=== PATIENT | male | born 1970 ===

== ENCOUNTER 2017-01-09 13:30 | Emergency (ER) | payer SELFPAY ==
[2017-01-09 14:21] VITALS: BP 106/59
--- NOTE | 2017-01-09 14:55 | UC ---
Lower Extremity/Ankle HPI - HPI Summary HPI Summary: 46 y/o Polish speaking male presents to the urgent care c/o left ankle pain after twisting it while lifting some food boxes at work on 01/04/2017. He has been walking with limping since then. Pain 2/10, but increases with ambulation and associated with swelling. Pt has not taking anything to alleviate symptoms. Pt denies numbness and tingling sensation over the Left foot and toes, fever, N /V/D, SOB, chest pain, abdominal pain, urinary symptoms. Pt works in a farm - History of Current Complaint Chief Complaint: UCLowerExtremity Stated Complaint: LEFT ANKLE PAIN Time Seen by Provider: 01/09/17 14:42 Hx Obtained From: Patient Onset/Duration: Sudden Onset, Lasting Days Severity Initially: Mild Severity Currently: Moderate - swelling Pain Intensity: 2 Pain Scale Used: 0-10 Numeric Aggravating Factor(s): Ambulation Alleviating Factor(s): Rest Able to Bear Weight: Yes Related History: Occupational Injury - Pt works in a farm - Risk Factors Gout Risk Factors: Negative DVT Risk Factors: Negative Septic Arthritis Risk Factor: Negative - Allergies/Home Medications Allergies/Adverse Reactions: Allergies Allergy/AdvReac Type Severity Reaction Status Date / Time No Known Allergies Allergy Verified 01/09/17 14:09 PMH/Surg Hx/FS Hx/Imm Hx Previously Healthy: Yes - Pt denies PMHX - Surgical History Surgical History: Yes Surgery Procedure, Year, and Place: abd hernia repair 2012 - Family History Known Family History: Positive: None - Pt denies FMHX - Social History Occupation: Employed Full-time Lives: With Family Alcohol Use: Rare Substance Use Type: None Smoking Status (MU): Former Smoker When Did the Patient Quit Smoking/Using Tobacco: 18 YRS AGO Review of Systems Constitutional: Negative Skin: Negative Eyes: Negative ENT: Negative Respiratory: Negative Cardiovascular: Negative Gastrointestinal: Negative Genitourinary: Negative Motor: Negative Neurovascular: Negative Musculoskeletal: Other: - Left ankle pain and swelling s/p twisting ankle while stacking boxes at work Neurological: Negative Psychological: Negative Is Patient Immunocompromised?: No All Other Systems Reviewed And Are Negative: Yes Physical Exam Triage Information Reviewed: Yes Vital Signs: Initial Vital Signs Temp 97.8 F 01/09/17 13:49 Pulse 56 01/09/17 13:49 Resp 20 01/09/17 13:49 BP 106/59 01/09/17 13:49 Pulse Ox 96 01/09/17 13:49 - Additional Comments Vital Signs Reviewed: Yes General: well developed, well nourished male, sitting in the examining table w/ o any apparent distress Eyes: Positive: Conjunctiva Clear - PERRLA, EOMI, ENT: Positive: Normal ENT inspection, Hearing grossly normal, Pharynx normal, TMs normal Neck: Positive: Supple, Nontender, No Lymphadenopathy Respiratory: Positive: Chest non-tender, Lungs clear, Normal breath sounds, No respiratory distress Cardiovascular: Positive: RRR, No Murmur, Pulses Normal, Brisk Capillary Refill Abdomen Description: Positive: Nontender, No Organomegaly, Soft. Negative: CVA Tenderness (R), CVA Tenderness (L) Bowel Sounds: Positive: Present Musculoskeletal: - Ankle: Pt is able to bear weight and ambulate w/ limping. The L ankle is without obvious asymmetry or deformity when compared to the R ankle. Decrease ROM due to pain. Moderate swelling at the lateral and medial malleolus, with tenderness to palpation. No ecchymosis or bruising observed. Talar tilt test is negative for ligament laxity to valgus or varus stress. Negative anterior drawer. Peroneal nerve is intact with strong eversion and plantar flexion. Positive sensation over the Rt foot and Rt ankle, positive pulses, capillary refill intact Neurological Exam: Normal Psychological Exam: Normal Skin: warm and dry Lower Extremity Course/Dx - Course Course Of Treatment: 46 y/o Polish speaking male presents to the urgent care c/ o left ankle pain after twisting it while lifting some food boxes at work on . He has been walking with limping since then. Pain 2/10, but increases with ambulation and associated with swelling. Pt has not taking anything to alleviate symptoms. Pt denies numbness and tingling sensation over the Left foot and toes, fever, N/V/D, SOB, chest pain, abdominal pain, urinary symptoms. Pt works in a farm. Hx obtained. Left ankle X-ray ordered, Impression. Soft tissue sweeling observed, no acute osseeous injury noted. Possible left ankle sprain. Left ankle immobilized with jonas bandage, gel ankle splint, and a post-up shoe, Rx Naproxen PO to decrease swelling and pain. Parents and Pt advised RICE, f/u with PCP on orthopedic in 1 week if not improvement of symptoms for further treatment.Pt understood and agreed and left the clinic ambulating. - Differential Dx/Diagnosis Differential Diagnosis/HQI/PQRI: Contusion, Fracture (Closed), Sprain, Strain, Tendonitis Provider Diagnoses: 1- Left ankle pain and swelling s/p injury Discharge - Discharge Plan Condition: Stable Disposition: HOME Prescriptions: Naproxen TAB* [Naprosyn 250 mg TAB*] 500 mg PO Q8H PRN #30 tab PRN Reason: Pain Patient Education Materials: Ankle Sprain (ED) Print Language: MARTINIQUAIS Referrals: No Primary Care Phys,NOPCP [Primary Care Provider] - [facility] [place] PHYSICIAN REFERRAL [Outside] - 1 Week Corbin Welch MD [Medical Doctor] - 1 Week Additional Instructions: 1- Por favor tome el Naproxen PO cada 8hr despues de las comidas para aliviar el dolor y la hinchazon. 2- Applique hielo y mantenga immobilizado larson tobillo con la lara e immobilizador. Mantenga elevado el pie y trate de no caminar mucho. 3- Si los simptomas no mejoran en rush semana por favor deepali rush dana con el Orthopedista Dr Welch para que lo evaluae de nuevo y le de tratamiento
--- NOTE | 2017-01-09 15:06 | RAD ---
HISTORY: Left ankle pain COMPARISONS: None VIEWS: 3, Frontal, lateral, and oblique views of the left ankle FINDINGS: BONE DENSITY: Normal. BONES: There is no displaced fracture. 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 ALIGNMENT: There is no dislocation. SOFT TISSUES: There is circumferential soft tissue swelling. OTHER FINDINGS: None. IMPRESSION: SOFT TISSUE SWELLING. NO ACUTE OSSEOUS INJURY. IF SYMPTOMS PERSIST, RECOMMEND REPEAT IMAGING.
== END 2017-01-09 15:40 | disposition home or self-care (01) ==
LOC: UCCORT 13:30
DX: M25.572 Pain in left ankle and joints of left foot (principal); R60.0 Localized edema; Z87.891 Personal history of nicotine dependence
CPT/HCPCS: 99212; G0463